=== PATIENT | male | born 1950 | race Caucasian/White ===

== ENCOUNTER 2019-05-30 12:33 | Emergency (ER) | payer OTHER ==
--- NOTE | 2019-05-30 13:21 | RAD REPORT ---
EXAM DESCRIPTION: CT - Stone Protocol - 05/30/2019 1:11 pm CLINICAL HISTORY: Flank pain. PAIN COMPARISON: No comparisons TECHNIQUE: Axial images were obtained without oral or IV contrast. Lack of contrast limits solid org an and vascular assessment. The [id number] spans the entirety of the system partially obscuring uppermost abdomen and lung bases. Coronal reformatted images were obtained and reviewed. All CT scans are performed using dose optimization technique as appropriate and may include automated exposure control or mA/KV adjustment according to patient size. FINDINGS: The lower lung foreman are clear. Imaged portions of the liver and spleen show no suspicious findings on non-contrast imaging. The panc reas and adrenal glands are normal. No pathologic lymphadenopathy in the abdomen or pelvis. 4 mm stone (1150HU) is present mid left ureter resulting in mild to moderate left hydronephrosis. 7 m m stone is present in the inferior calyx of the left kidney as well. Punctate calculi present mid-ping e right kidney. No bowel obstruction, free air, free fluid or abscess. Normal appendix noted. Moderate lower lumbar degenerative changes. IMPRESSION: 4 mm stone is present mid left ureter resulting in moderate left hydronephrosis. Additional bilateral nephrolithiasis, including a 7 mm stone inferior calyx left kidney.
[2019-05-30] MEDS ORDERED: NA CHLORIDE 0.9% 1,000 ML ONE (13:48)
[2019-05-30] MEDS ORDERED: ONDANSETRON 4 MG/2 ML VIAL ONE (14:00)
[2019-05-30] MEDS ORDERED: MORPHINE 4 MG/ML SYR ONE (14:00)
[2019-05-30 14:09] LABS: Absolute Lymphocytes (CBC) 0.8 K/uL (0.7-4.9); Basophils % 0.4 % (0-1.3); Lymphocytes % 4.5 % (15.3-44.8); MPV 8.8 fL (7.6-11.3); RBC Red Blood Cell Count 5.47 M/uL (4.33-5.43)
[2019-05-30 14:25] LABS: Albumin 4.3 g/dL (3.4-5.0); Bilirubin Direct 0.1 mg/dL (0-0.2); Bilirubin Total 0.6 mg/dL (0.2-1.0); Potassium 4.5 mmol/L (3.5-5.1)
[2019-05-30] MEDS ORDERED: KETOROLAC 30 MG/ML INJ ONE (14:40)
--- NOTE | 2019-05-30 15:40 | ER ---
Nurse's Notes [facility] Name: Felix Pfeiffer Age: 68 yrs Sex: Male : 1950 Arrival Date: 05/30/2019 Time: 12:35 Bed 17 Private MD: Diagnosis: Calculus of kidney with calculus of ureter Presentation: 05/30 12:39 Presenting complaint: Patient states: i am having pain in my LEFT flank, since last tw2 night, 10 yrs ago i had a kidney stone, i dont know if i ever passed it, then it happened 4-5 years ago, and it went away, +N, i took pepto and tums. Transition of care: patient was not received from another setting of care. Onset of symptoms was May 30, 2019. Risk Assessment: Do you want to hurt yourself or someone else? Patient reports no desire to harm self or others. Initial Sepsis Screen: Does the patient meet any 2 criteria? HR > 90 bpm. No. Patient's initial sepsis screen is negative. Does the patient have a suspected source of infection? No. Patient's initial sepsis screen is negative. Care prior to arrival: None. 12:39 Method Of Arrival: Ambulatory tw2 12:39 Acuity: GRETA 3 tw2 12:41 Presenting complaint: Patient states: [place] i want to get tw2 it taken care of because the pain is so bad. Triage Assessment: 12:41 General: Appears uncomfortable, Behavior is calm, cooperative, appropriate for age. tw2 Pain: Complains of pain in left low back and left mid back. GI: Reports nausea, vomiting. Historical: - Allergies: 12:42 No Known Drug Allergies; tw2 12:42 No Known Allergies; tw2 - Home Meds: 12:42 None [Active]; tw2 - PMHx: 12:42 None; tw2 - PSHx: 12:42 None; tw2 - Immunization history:: Adult Immunizations. - Social history:: Smoking status: . - Ebola Screening: : Patient denies travel to an Ebola-affected area in the 21 days before illness onset. Screenin:02 Abuse screen: Denies threats or abuse. Nutritional screening: No deficits noted. em Tuberculosis screening: No symptoms or risk factors identified. Fall Risk None identified. Assessment: 13:45 General: Appears uncomfortable, Behavior is calm, cooperative, appropriate for age, em Denies fever. Pain: Complains of pain in posterior aspect of left lateral abdomen Pain does not radiate. Neuro: Level of Consciousness is awake, alert, obeys commands, Oriented to person, place, time, situation, Appropriate for age. Cardiovascular: Capillary refill < 3 seconds Patient's skin is warm and dry. Respiratory: Airway is patent Respiratory effort is even, unlabored, Respiratory pattern is regular, symmetrical. GI: Abdomen is flat, Bowel sounds present X 4 quads. Abd is soft and non tender X 4 quads. Reports nausea, vomiting, Patient currently denies diarrhea. : Denies burning with urination. Derm: Skin is intact, is healthy with good turgor, Skin is pink, warm \T\ dry. Musculoskeletal: Capillary refill < 3 seconds, Range of motion: intact in all extremities. 13:45 Reassessment: I agree with assessment completed by Jaicnto Landers LVN. aa5 14:30 Reassessment: Patient appears in no apparent distress at this time. Patient and/or em family updated on plan of care and expected duration. Pain level reassessed. Patient is alert, oriented x 3, equal unlabored respirations, skin warm/dry/pink. rates pain 5/10 Patient states feeling better. Patient states symptoms have improved. 15:30 Reassessment: Patient appears in no apparent distress at this time. Patient and/or em family updated on plan of care and expected duration. Pain level reassessed. Patient is alert, oriented x 3, equal unlabored respirations, skin warm/dry/pink. Vital Signs: 12:41 BP 182 / 110; Pulse 100; Resp 18; Temp 97.8(O); Pulse Ox 97% on R/A; Weight 79.38 kg tw2 (R); Height 5 ft. 7 in. (170.18 cm); Pain 10/10; 13:55 BP 166 / 115; Pulse 94; Resp 18; Pulse Ox 98% on R/A; Pain 10/10; em 14:30 BP 192 / 97; Pulse 81; Resp 18; Pulse Ox 97% on R/A; Pain 5/10; em 15:30 BP 174 / 88; Pulse 82; Resp 18; Pulse Ox 99% on R/A; Pain 4/10; em 12:41 Body Mass Index 27.41 (79.38 kg, 170.18 cm) tw2 ED Course: 12:35 Patient arrived in ED. as 12:41 Triage completed. tw2 12:41 Arm band placed on. tw2 12:44 Andrés Mullins MD is Attending Physician. tw4 13:27 CT Stone Protocol In Process Unspecified. EDMS 13:34 Jacinto Landers LVN is Primary Nurse. em 13:50 Inserted saline lock: 20 gauge in right antecubital area, using aseptic technique. em Blood collected. 14:02 Patient has correct armband on for positive identification. Placed in gown. Bed in low em position. Call light in reach. Adult w/ patient. Pulse ox on. NIBP on. 16:02 No provider procedures requiring assistance completed. IV discontinued, intact, em bleeding controlled, No redness/swelling at site. Pressure dressing applied. Administered Medications: 13:50 Drug: NS 0.9% 1000 ml Route: IV; Rate: 1 bolus; Site: right antecubital; em 16:05 Follow up: IV Status: Completed infusion; IV Intake: 1000ml em 14:00 Drug: Zofran 4 mg Route: IVP; Site: right antecubital; aa5 14:35 Follow up: Response: No adverse reaction em 14:02 Drug: morphine 4 mg Route: IVP; Site: right antecubital; aa5 14:35 Follow up: Response: No adverse reaction; Marked relief of symptoms; RASS: Alert and em Calm (0) 14:21 CANCELLED (Physician Discretion): ProTONIX 40 mg IVP once tw4 14:42 Drug: TORadol 30 mg Route: IVP; Site: right antecubital; aa5 16:05 Follow up: Response: No adverse reaction; Marked relief of symptoms; Pain is decreased em 16:02 Drug: Flomax 0.4 mg Route: PO; em 16:06 Follow up: Response: Medication administered at discharge. em Intake: 16:05 IV: 1000ml; Total: 1000ml. em Outcome: 15:40 Discharge ordered by . tw4 16:02 Discharged to home ambulatory. em 16:02 Condition: good 16:02 Discharge instructions given to patient, Instructed on discharge instructions, follow up and referral plans. medication usage, Demonstrated understanding of instructions, follow-up care, medications, Prescriptions given X 3. 16:07 Patient left the ED. em 16:08 Patient left the ED. em Signatures: Dispatcher [employer] EDJacinto Shultz, EDITORIAL CARTOONIST EDITORIAL CARTOONIST Keyla Cook Audri, RN RN aa5 Monica Castro RN RN tw2 Andrés Mullins MD MD tw4
--- NOTE | 2019-05-30 15:41 | EDPHYS ---
Physician Documentation [facility] Name: Felix Pfeiffer Age: 68 yrs Sex: Male : 1950 Arrival Date: 05/30/2019 Time: 12:35 Bed 17 Private MD: ED Physician Andrés Mullins HPI: 05/30 15:47 This 68 yrs old Male presents to ER via Ambulatory with complaints of Flank tw4 Pain, Vomiting. 15:47 The patient complains of pain in the left mid back. The pain radiates. tw4 15:47 Onset: The symptoms/episode began/occurred last night. Modifying factors: The symptoms tw4 are alleviated by nothing. the symptoms are aggravated by nothing. Associated signs and symptoms: The patient has no apparent associated signs or symptoms. Severity of pain: At its worst the pain was moderate severe in the emergency department the pain has improved. The patient has not experienced similar symptoms in the past. Historical: - Allergies: 12:42 No Known Drug Allergies; tw2 12:42 No Known Allergies; tw2 - Home Meds: 12:42 None [Active]; tw2 - PMHx: 12:42 None; tw2 - PSHx: 12:42 None; tw2 - Immunization history:: Adult Immunizations. - Social history:: Smoking status: . - Ebola Screening: : Patient denies travel to an Ebola-affected area in the 21 days before illness onset. ROS: 15:47 Constitutional: Negative for fever, chills, and weight loss, Eyes: Negative for injury, tw4 pain, redness, and discharge, Cardiovascular: Negative for chest pain, palpitations, and edema, Respiratory: Negative for shortness of breath, cough, wheezing, and pleuritic chest pain, Abdomen/GI: Negative for abdominal pain, nausea, vomiting, diarrhea, and constipation. 15:47 MS/Extremity: Negative for injury and deformity, Skin: Negative for injury, rash, and discoloration, Neuro: Negative for headache, weakness, numbness, tingling, and seizure. 15:47 Back: Positive for pain at rest, flank pain, on the left, Negative for injury or acute deformity, decreased range of motion. Exam: 15:47 Constitutional: This is a well developed, well nourished patient who is awake, alert, tw4 and in no acute distress. Head/Face: Normocephalic, atraumatic. Chest/axilla: Normal chest wall appearance and motion. Nontender with no deformity. No lesions are appreciated. Cardiovascular: Regular rate and rhythm with a normal S1 and S2. No gallops, murmurs, or rubs. Normal PMI, no JVD. No pulse deficits. Respiratory: Lungs have equal breath sounds bilaterally, clear to auscultation and percussion. No rales, rhonchi or wheezes noted. No increased work of breathing, no retractions or nasal flaring. Abdomen/GI: Soft, non-tender, with normal bowel sounds. No distension or tympany. No guarding or rebound. No evidence of tenderness throughout. Back: No spinal tenderness. No costovertebral tenderness. Full range of motion. MS/ Extremity: Pulses equal, no cyanosis. Neurovascular intact. Full, normal range of motion. Neuro: Awake and alert, GCS 15, oriented to person, place, time, and situation. Cranial nerves II-XII grossly intact. Motor strength 5/5 in all extremities. Sensory grossly intact. Cerebellar exam normal. Normal gait. Vital Signs: 12:41 BP 182 / 110; Pulse 100; Resp 18; Temp 97.8(O); Pulse Ox 97% on R/A; Weight 79.38 kg tw2 (R); Height 5 ft. 7 in. (170.18 cm); Pain 10/10; 13:55 BP 166 / 115; Pulse 94; Resp 18; Pulse Ox 98% on R/A; Pain 10/10; em 14:30 BP 192 / 97; Pulse 81; Resp 18; Pulse Ox 97% on R/A; Pain 5/10; em 15:30 BP 174 / 88; Pulse 82; Resp 18; Pulse Ox 99% on R/A; Pain 4/10; em 12:41 Body Mass Index 27.41 (79.38 kg, 170.18 cm) tw2 MDM: 13:52 Patient medically screened. tw4 16:05 Differential diagnosis: nephrolithiasis, pyelonephritis. Data reviewed: vital signs, tw4 nurses notes. Data interpreted: Pulse oximetry: Interpretation: normal. Counseling: I had a detailed discussion with the patient and/or guardian regarding: the historical points, exam findings, and any diagnostic results supporting the discharge/admit diagnosis. 16:06 Medication response: morphine relieved the patient's pain. Symptoms have resolved, tw4 Toradol relieved patient's pain. The symptoms have resolved, Zofran relieved the patient's nausea. Response to treatment: and as a result, I will discharge patient, administer pain medication, acetaminophen, ibuprofen. Special discussion: I discussed with the patient/guardian in detail that at this point there is no indication for admission to the hospital. It is understood, however, that if the symptoms persist or worsen the patient needs to return immediately for re-evaluation. 05/30 12:44 Order name: Basic Metabolic Panel; Complete Time: 15:14 tw4 05/30 15:14 Interpretation: Normal except: GLUC 140; GFR 58; CA 10.5. tw 05/30 12:44 Order name: CBC with Diff tw 05/30 15:14 Interpretation: Normal except: WBC 17.3; RBC 5.47; HCT 50.0; TITO% 90.1; LYM% 4.5; NEUT tw4 A 15.6. 05/30 12:44 Order name: Creatinine for Radiology; Complete Time: 15:14 tw4 05/30 15:14 Interpretation: Normal except: GFR 58. [facility] 05/30 12:44 Order name: Hepatic Function; Complete Time: 15:14 [facility] 05/30 15:14 Interpretation: Normal except: GLOB 3.7. [facility] 05/30 12:44 Order name: Lipase; Complete Time: 15:14 [facility] 05/30 14:53 Order name: CBC Smear Scan [facility] 05/30 12:44 Order name: CT Stone Protocol; Complete Time: 15:33 [facility] 05/30 15:43 Order name: Urine Dipstick--Ancillary (enter results) 05/30 16:02 Order name: Urine Dipstick-Ancillary [facility] 05/30 12:44 Order name: IV Saline Lock; Complete Time: 13:57 tw4 05/30 12:44 Order name: Labs collected and sent; Complete Time: 13:57 tw4 Administered Medications: 13:50 Drug: NS 0.9% 1000 ml Route: IV; Rate: 1 bolus; Site: right antecubital; em 16:05 Follow up: IV Status: Completed infusion; IV Intake: 1000ml em 14:00 Drug: Zofran 4 mg Route: IVP; Site: right antecubital; aa5 14:35 Follow up: Response: No adverse reaction em 14:02 Drug: morphine 4 mg Route: IVP; Site: right antecubital; aa5 14:35 Follow up: Response: No adverse reaction; Marked relief of symptoms; RASS: Alert and em Calm (0) 14:21 CANCELLED (Physician Discretion): ProTONIX 40 mg IVP once tw4 14:42 Drug: TORadol 30 mg Route: IVP; Site: right antecubital; aa5 16:05 Follow up: Response: No adverse reaction; Marked relief of symptoms; Pain is decreased em 16:02 Drug: Flomax 0.4 mg Route: PO; em 16:06 Follow up: Response: Medication administered at discharge. em Disposition: 05/30/19 15:40 Discharged to Home. Impression: Calculus of kidney with calculus of ureter. - Condition is Stable. - Discharge Instructions: Renal Colic, [id number], Kidney Stones, [id number]. - Prescriptions for Ibuprofen 800 mg Oral Tablet - take 1 tablet by ORAL route every 8 hours As needed take with food; 30 tablet. Tylenol- Codeine #3 300-30 mg Oral Tablet - take 2 tablet by ORAL route every 6 hours As needed; 6 tablet. Flomax 0.4 mg Oral Capsule, Sust. Release 24 hr - take 1 capsule by ORAL route once daily 1/2 hour following the same meal each day; 30 capsule. - Medication Reconciliation Form, Thank You Letter, Antibiotic Education, Prescription Opioid Use form. - Follow up: Private Physician; When: Upon discharge from the Emergency Department; Reason: Recheck today's complaints, Continuance of care. - Problem is new. - Symptoms have improved. Signatures: Dispatcher [employer] EDCT Jacinto Landers, DEPOSIT REFUND CLERK DEPOSIT REFUND CLERK em Deloris Peters RN RN aa5 Monica Castro RN RN tw2 Andrés Mullins MD MD tw4 Corrections: (The following items were deleted from the chart) 14:21 14:14 ProTONIX 40 mg IVP once ordered. tw4 tw4 16:07 15:40 05/30/2019 15:40 Discharged to Home. Impression: Calculus of kidney with calculus em of ureter. Condition is Stable. Forms are Medication Reconciliation Form, Thank You Letter, Antibiotic Education, Prescription Opioid Use. Follow up: Private Physician; When: Upon discharge from the Emergency Department; Reason: Recheck today's complaints, Continuance of care. Problem is new. Symptoms have improved. tw4 16:08 16:07 05/30/2019 15:40 Discharged to Home. Impression: Calculus of kidney with calculus em of ureter. Condition is Stable. Discharge Instructions: Renal Colic, [id number], Kidney Stones, [id number]. Prescriptions for Ibuprofen 800 mg Oral Tablet - take 1 tablet by ORAL route every 8 hours As needed take with food; 30 tablet, Tylenol-Codeine #3 300-30 mg Oral Tablet - take 2 tablet by ORAL route every 6 hours As needed; 6 tablet, Flomax 0.4 mg Oral Capsule, Sust. Release 24 hr - take 1 capsule by ORAL route once daily 1/2 hour following the same meal each day; 30 capsule. and Forms are Medication Reconciliation Form, Thank You Letter, Antibiotic Education, Prescription Opioid Use. Follow up: Private Physician; When: Upon discharge from the Emergency Department; Reason: Recheck today's complaints, Continuance of care. Problem is new. Symptoms have improved. em
[2019-05-30] MEDS ORDERED: TAMSULOSIN 0.4 MG SR CAP ONE (15:54)
[2019-05-30 16:00] LABS: Urine Blood 1+ (NEG); Urine Glucose NEGATIVE (NEG); Urine Protein TRACE (NEG)
[2019-05-30 16:25] LABS: Blood Morphology Comment NOTED (NOT SEEN); Platelet Estimate ADEQ; Poikilocytosis 1+; Urine White Blood Cell Casts OK
[2019-05-30 16:27] VITALS: TEMP 97.8
[2019-05-30 16:31] VITALS: BP 174/88; O2SAT 99
== END 2019-05-30 16:08 | disposition home or self-care (01) ==
LOC: ER 12:33
DX: N20.2 Calculus of kidney with calculus of ureter (principal)
CPT/HCPCS: 96361; 85025; 80048; 36415; 80076; 81003; 83690; 76377; 74176; 96375; 96374; 99284; J7030; J2405